=== PATIENT | male | born 1960 | race Caucasian/White ===

== ENCOUNTER → 2020-12-02 | Outpatient (CLI) | payer OTHER ==
[~2020-12-02] MED LIST: ALDACTONE50 MG PO; AMIODARONE HCL200 MG PO; ASPIRIN EC81 MG PO; ASPIRIN81 MG PO; CARVEDILOL3.125 MG PO; COREG 25MG TAB25 MG PO; ECOTRIN81 MG PO; FLORASTOR250 MG PO; FUROSEMIDE40 MG PO; KEFLEX500 MG PO; LASIX20 MG PO; LISINOPRIL5 MG PO; NICOTINE PATCH1 EAC2 TD; OMNICEF 300 MG300 MG PO; PANTOPRAZOLE SO40 MG PO; PRINIVIL10 MG PO; ZITHROMAX500 MG PO; ZYVOX600 MG PO
[2020-12-02 14:50] LABS: BUN/CREATININE RATIO 12 (0-10)
== END ==
LOC: LAB 14:03
PROVIDERS: Nurse Practitioner Family
DX: I50.42 Chronic combined systolic (congestive) and diastolic (congestive) heart failure (principal); E78.5 Hyperlipidemia, unspecified
CPT/HCPCS: 36415; 80048; 80061